=== PATIENT | female | born 1950 | race Caucasian/White ===

== ENCOUNTER 2016-11-11 06:00 | Inpatient (IN) ==
[2016-11-07 15:30] LABS: Basophils # (Auto) 0 K/mcL (0.0-0.3); Basophils % (Auto) 0.5 % (0.0-2.0); Eosinophils # (Auto) 0.1 K/mcL (0.0-0.7); Eosinophils % (Auto) 0.9 % (0.0-7.0); Granulocytes % (Auto) 73.9 % (38.0-78.0); Lymphocytes # (Auto) 1.3 K/mcL (1.5-4.8); Lymphocytes % (Auto) 16.4 % (15.5-49.0); Mean Cell Volume 90.8 fL (80.0-100.0); Mean Corpuscular HGB Conc 32.9 g/dL (31.0-36.0); Mean Corpuscular Hemoglobin 29.9 pg (26.0-34.0); Monocytes # (Auto) 0.6 K/mcL (0.1-0.9); Monocytes % (Auto) 8.3 % (1.0-9.0); Platelet Count 285 K/mcL (140-440); RBC 4.76 M/mcL (4.00-5.20); Red Cell Distribution Width 14.1 % (11.5-14.5)
[2016-11-07 15:40] LABS: Blood Urea Nitrogen 15 mg/dl (8-23)
[~2016-11-11 06:00] MED LIST: ACETAMINOPHEN 500 MG TABLET PO SCH; CELECOXIB 200 MG CAPSULE PO SCH; PREGABALIN 150 MG CAPSULE PO SCH; ceFAZolin 1 GM VIAL IV SCH; oxyCODONE 10 MG TAB.ER.12H PO SCH
[2016-11-11] MEDS ORDERED: NEOSTIGMINE 1 MG/ML VIAL IV ONE (09:30)
[2016-11-11] MEDS ORDERED: TRANEXAMIC ACID 1,000 MG/10 ML VIAL IV ONE (09:30)
[2016-11-11] MEDS ORDERED: GLYCOPYRROLATE 0.2 MG/ML VIAL IV ONE (09:30)
[2016-11-11] MEDS ORDERED: ROCURONIUM 10 MG/ML ML IV ONE (09:30)
[2016-11-11] MEDS ORDERED: MIDAZOLAM 5 MG/5 ML VIAL IV ONE (09:30)
[2016-11-11] MEDS ORDERED: ePHEDrine 50 MG/ML AMPUL IV ONE (09:30)
[2016-11-11] MEDS ORDERED: LIDOCAINE HCL/PF 100 MG/5 ML SYRINGE IV ONE (09:30)
[2016-11-11] MEDS ORDERED: PROPOFOL 200 MG/20 ML VIAL IV ONE (09:30)
[2016-11-11] MEDS ORDERED: DEXAMETHASONE 10 MG/ML VIAL IV ONE (09:30)
[2016-11-11] MEDS ORDERED: ONDANSETRON 4 MG/2 ML VIAL IV ONE (09:30)
[2016-11-11] MEDS ORDERED: HYDROmorphone 2 MG/ML SYRINGE IV PRN ×2 (10:22→12:23)
[2016-11-11] MEDS ORDERED: NALOXONE HCL 0.4 MG/ML VIAL IV PRN (10:22)
[2016-11-11] MEDS ORDERED: PROMETHAZINE 25 MG/ML VIAL IM ONE (10:22)
[2016-11-11] MEDS ORDERED: FLUMAZENIL 0.1 MG/ML ML IV PRN (10:22)
[2016-11-11] MEDS ORDERED: BENZOCAINE/MENTHOL 1 LOZENGE PO PRN ×2 (10:22→10:56)
[2016-11-11] MEDS ORDERED: fentaNYL 100 MCG/2 ML VIAL IV PRN (10:22)
[2016-11-11] MEDS ORDERED: diphenhydrAMINE 50 MG/ML VIAL IV PRN (10:22)
[2016-11-11] MEDS ORDERED: IPRATROPIUM/ALBUTEROL 3 ML AMPUL.NEB NEB PRN (10:22)
[2016-11-11] MEDS ORDERED: METOCLOPRAMIDE 10 MG/2 ML VIAL IV PRN (10:22)
[2016-11-11] MEDS ORDERED: MEPERIDINE 50 MG/ML SYRINGE IM ONE (10:22)
[2016-11-11] MEDS ORDERED: ePHEDrine 50 MG/ML AMPUL IV PRN (10:22)
[2016-11-11] MEDS ORDERED: MEPERIDINE 25 MG/ML SYRINGE IV PRN (10:22)
[2016-11-11] MEDS ORDERED: LACTATED RINGERS 250 ML IV PRN (10:22)
[2016-11-11] MEDS ORDERED: PROMETHAZINE 25 MG/ML VIAL IV PRN (10:22)
[2016-11-11] MEDS ORDERED: METHOCARBAMOL 1,000 MG/10 ML VIAL IV PRN (10:22)
[2016-11-11] MEDS ORDERED: ONDANSETRON 4 MG/2 ML VIAL IV PRN ×2 (10:22→10:56)
[2016-11-11] MEDS ORDERED: LACTATED RINGERS 1,000 ML IV SCH (10:30)
[2016-11-11] MEDS ORDERED: GENTAMICIN SULFATE 800 MG/20 ML VIAL IR ONE (10:35)
[2016-11-11] MEDS ORDERED: FLEETS ADULT ENEMA PR PRN (10:56)
[2016-11-11] MEDS ORDERED: TRANEXAMIC ACID 1,000 MG/10 ML VIAL IV SCH (10:56)
[2016-11-11] MEDS ORDERED: ACETAMINOPHEN 325 MG TABLET PO PRN (10:56)
[2016-11-11] MEDS ORDERED: POLYETHYLENE GLYCOL 3350 17 GM PACKET PO PRN (10:56)
[2016-11-11] MEDS ORDERED: BISACODYL 10 MG SUPP.RECT PR PRN (10:56)
[2016-11-11] MEDS ORDERED: MAGNESIUM HYDROXIDE 30 ML ORAL.SUSP PO PRN (10:56)
--- NOTE | 2016-11-11 12:06 | Operative Note ---
DATE OF OPERATION: 11/11/2016 PREOPERATIVE DIAGNOSIS: Right hip degenerative arthritis. POSTOPERATIVE DIAGNOSIS: Right hip degenerative arthritis. PROCEDURE: Right total hip arthroplasty with a cemented stem, cementless cup. SURGEON: Bernabe Juárez MD SLUDGE CONTROL ATTENDANT: Willie Teresa PA-C ANESTHESIA: General LMA anesthesia. COMPLICATIONS: None. IMPLANTS: Size 5 cemented stem with an 8 mm distal centralizer canal restrictor, +5 ceramic head on a dual mobility ball, and a 50 mm cup with one 30 mm screw and a dual mobility liner. DESCRIPTION OF PROCEDURE: The patient was brought to the operating room and put to sleep with general LMA anesthesia. Once asleep, the patient had the right hip sterilely prepped and draped in the usual sterile fashion. The patient was turned into a left lateral position and the right hip was confirmed as the operative site. Preop antibiotics and tranexamic acid were given. Ioban was placed over the skin and a superior posterior approach performed, a 4 inch incision made just above the hip. This was dissected through the muscle layer and identified the posterior capsule. We released the superior portion of the capsule. The hip was then dislocated. We made our neck cut at 30 mm in length, then subluxed the hip anteriorly, and reamed up to size 49 and implanted a 50 mm cup with a 30 mm screw in 20 degrees of version and 40 degrees of inclination. Once complete, we irrigated, placed the dual mobility liner and broached up the femur to a size 5 stem. We trialed a size 5 stem. This seemed to be appropriate for leg length and offset. We cemented into place a size 5 stem at 15 degrees of anteversion. Once the cement was dried, we then trialed the +5 neck length. This seemed to be the most appropriate size. An x-ray was taken to confirm leg length and offset. Once the intraoperative x-ray was complete, we irrigated and placed the final implants, tapped into place and reduced the hip. The patient was stable up to 90 degrees. We irrigated thoroughly and then repaired the posterior capsule with #2 Ethibond, closed the fascial layer with 0 Vicryl and closed the skin with 2-0 Vicryl and an adhesive closure. The patient tolerated this well. There was no complication. BOOM:rudolph Job ID: [id number] Doc ID: [id number] Bernabe Juárez MD
--- NOTE | 2016-11-11 12:48 | XRay Report ---
CLINICAL INFORMATION: Postop hip prostheses COMPARISON: None. FINDINGS: ] The right hip prostheses is anatomically aligned. No osseous abnormality. Soft tissue swelling and gas seen over the surgical site as expected. IMPRESSION: Negative Interpreted and Authenticated by: Memo Myers 11/11/16
[2016-11-11] MEDS: 0.45 % SODIUM CHLORIDE 1,000 ML IV SCH (13:32)
[2016-11-11] MEDS: 0.9 % SODIUM CHLORIDE 10 ML SYRINGE IV SCH ×2 (13:35→22:35)
--- NOTE | 2016-11-11 15:57 | Brief Operative Note ---
Date of procedure: 11/11/16 Pre-op diagnosis: left hip djd Post-op diagnosis: same Procedure: left marcel cemented Grafts/Implants: Yes Anesthesia: GETA Complications: none Complications Description: 11/11/16 15:57 none Surgeon: Bernabe Juárez Floor Space Allocator: Willie Teresa Estimated blood loss (cc): 150 Specimens Removed/Pathology: none sent Condition: stable Disposition: PACU
[2016-11-11] MEDS: ceFAZolin 1 GM VIAL IV SCH (18:06)
[2016-11-11] MEDS: DOCUSATE SODIUM 100 MG CAPSULE PO SCH (20:30)
[2016-11-11] MEDS: ASPIRIN 325 MG ENTERIC COATED TABLET PO SCH (20:30)
[2016-11-11] MEDS: KETOROLAC 15 MG/ML VIAL IV PRN (20:31)
[2016-11-11] MEDS ORDERED: SENNOSIDES 1 TABLET PO SCH (21:00)
[2016-11-11] MEDS ORDERED: TEMAZEPAM 15 MG CAPSULE PO PRN (21:00)
[2016-11-12] MEDS: 0.45 % SODIUM CHLORIDE 1,000 ML IV SCH (00:54)
[2016-11-12] MEDS: ceFAZolin 1 GM VIAL IV SCH (00:54)
[2016-11-12] MEDS: KETOROLAC 15 MG/ML VIAL IV PRN (04:16)
[2016-11-12] MEDS: 0.9 % SODIUM CHLORIDE 10 ML SYRINGE IV SCH (04:21)
[2016-11-12] MEDS ORDERED: LEVOTHYROXINE 88 MCG TABLET PO SCH (07:30)
--- NOTE | 2016-11-12 07:58 | Orthopedic Progress Note ---
Subjective Patient information: Note initiated : 11/12/16 at 7:57 am Service Date, if different from initiated Date: [] Patient: Ermelinda Moore 65 y/o F admitted on 11/11/16 for Right Total Hip Arthroplasty. Chief Complaint: [Pt is stable this morning on post operative day 1 without any significant concerns or complaints. Patients vital signs have remained stable. Patients dressing is dry and exhibits a grossly intact neurovascular and neuromotor exam. Patients 10 point ROS is otherwise negative. ] Objective Vital signs: Vital Signs Temp Pulse Resp BP BP Pulse Ox 11/12/16 07:40 97.8 F 58 L 14 134/69 98 11/12/16 04:25 97.6 F 57 L 12 144/65 96 11/12/16 04:24 96 11/12/16 03:00 95 11/12/16 01:00 97 11/12/16 00:00 98.1 F 59 L 12 127/78 94 11/11/16 23:00 96 11/11/16 21:00 96 11/11/16 20:00 97.6 F 62 12 135/68 96 11/11/16 19:00 96 11/11/16 17:54 99 11/11/16 17:00 99 11/11/16 16:20 67 132/75 99 11/11/16 15:00 98 11/11/16 14:33 53 L 148/67 100 11/11/16 14:18 57 L 134/57 100 11/11/16 14:03 55 L 131/65 100 11/11/16 13:47 48 L 147/79 100 11/11/16 13:33 53 L 142/78 99 11/11/16 13:04 46 L 138/84 95 11/11/16 13:00 98 11/11/16 12:49 59 L 134/61 95 11/11/16 12:24 95.2 F L 58 L 8 L 133/76 99 11/11/16 12:06 53 L 12 131/56 97 11/11/16 11:57 66 15 120/66 99 11/11/16 11:50 65 13 129/65 100 11/11/16 11:45 63 12 143/67 100 11/11/16 11:35 70 15 118/61 99 11/11/16 11:25 58 L 20 105/56 100 11/11/16 11:20 59 L 11 L 107/55 97 11/11/16 11:12 97.2 F L 70 20 114/57 100 11/11/16 08:00 98.3 F 87 16 169/89 97 Intake and Output 11/11/16 11/12/16 11/12/16 21:59 05:59 13:59 Intake Total 500 / 500 1175 / 1175 Output Total 1000 / 1000 1900 / 1900 Balance -500 / -500 -725 / -725 Intake: IV 1000 / 1000 Sodium Chloride 0.45% 1, 1000 / 1000 000 ml @ 100 mls/hr IV . Q10H MICHELLE Rx#:[id number] Oral 500 / 500 175 / 175 Output: Void Amount 1000 / 1000 1900 / 1900 Other: Meal Dinner Percent of Meal Consumed 100% # Voids 1 Weight 156 lb Intake & Output: Intake & Output 11/11/16 11/12/16 11/12/16 21:59 05:59 13:59 Intake Total 500 / 500 1175 / 1175 Output Total 1000 / 1000 1900 / 1900 Balance -500 / -500 -725 / -725 Weight 156 lb Intake: IV 1000 / 1000 Sodium Chloride 0.45% 1, 1000 / 1000 000 ml @ 100 mls/hr IV . Q10H MICHELLE Rx#:[id number] Oral 500 / 500 175 / 175 Output: Void Amount 1000 / 1000 1900 / 1900 Other: Meal Dinner Percent of Meal Consumed 100% # Voids 1 Incision: Yes healing Incision clean and dry: Yes Dressing: Yes clean, Yes dry Weight bearing status: partial Neurological exam IM: Yes motor sensory intact, Yes neurovascular intact Extremities exam IM: Yes Foot pink and warm, Yes neurovascular intact - Labs CBC & BMP: 11/12/16 05:21 11/07/16 13:32 Labs: 11/12/16 11/07/16 05:21 13:32 Hgb 14.2 Hct 32.7 L 43.2 Assessment and Plan (1) Hx of total hip arthroplasty Patient has been educated regarding wound care and dressings, follow up recommendations, and medication use. We will f/u with the patient within 2-3 weeks for wound check. Status: Acute
--- NOTE | 2016-11-12 08:00 | Discharge Summary ---
Ortho Discharge - JORGE - Patient Instructions Diet: Regular Diet Activity: activity as tolerated, weight bearing as tolerated Total Hip Protocol: Follow activity instructions as provided by Physical Therapy. Dressing Care: May shower in 2 days Patient Education: Total Hip Replacement (DC) - Problem Maintenance (1) Hx of total hip arthroplasty Status: Acute - Follow Up Plan Follow Up Appointments: Willie Teresa PA-C [Physician [facility]] - 11/26/16 1:40 pm Disposition: Home, Self-Care Prognosis: Good Rehab Potential: Good I certify that the patient requires SNF services: No Overall status at discharge: patient is progressing back to baseline - Orders For Discharge Prescriptions: Aspirin [Ecotrin] 325 mg PO BID #60 tab.ec Docusate Sodium [Colace] 100 mg PO BID #60 capsule Hydrocodone/APAP 7.5/325Mg [[place] 7.5/325Mg] 1 - 2 tab PO Q4HP PRN #75 tablet PRN Reason: Pain
[2016-11-12] MEDS: HYDROCODONE/APAP 7.5/325MG TABLET PO PRN ×2 (08:40→12:46)
[2016-11-12] MEDS: ASPIRIN 325 MG ENTERIC COATED TABLET PO SCH (08:40)
[2016-11-12] MEDS: DOCUSATE SODIUM 100 MG CAPSULE PO SCH (08:40)
== END 2016-11-12 13:00 | disposition home or self-care (01) | DRG 470 ==
LOC: MEDSUR 06:00
PROVIDERS: ADMIT Orthopaedic Surgery; ATTEND Orthopaedic Surgery

== ENCOUNTER 2021-05-21 17:24 | Inpatient (IN) ==
--- NOTE | 2021-05-21 17:54 | Emergency Department Note ---
Lower Extremity Injury HPI <Paris Townsend PA-C - Last Filed: 05/21/21 22:43> General Chief Complaint: Extremity Injury, Lower Stated Complaint: hip fx Time Seen by Provider: 05/21/21 17:33 History of Present Illness HPI Narrative: This is a 70-year-old female patient who was seen at [facility] for a impacted left intertrochanteric hip fracture after she fell from a boat in her driveway earlier this afternoon. She comes in the ER for surgical intervention with Dr. Lehman this evening. Pain is controlled by morphine. Currently denying nausea. No comorbidities include hypothyroidism, hypertension and hyperlipidemia. No history of coronary artery disease. Related Data Home Medications Medication Instructions Recorded Confirmed levothyroxine 88 mcg PO QAMAC 11/07/16 06/06/20 ncquadv-aotjqpaaj-cprb 500 tab PO DAILY 06/06/20 06/06/20 flaxseed oil [[place]-3 Flaxseed Oil] 1,400 mg PO QDAY 06/06/20 06/06/20 nfvrcnzwzms-nse-tvlruznwn-vitC cap PO DAILY 06/06/20 [Glucosamine Complex-MSM] hydrochlorothiazide 12.5 mg PO QDAY 06/06/20 06/06/20 magnesium 400 mg PO QDAY 06/06/20 06/06/20 pfsdjqeg-hzt-pzbc-FA-lutein 1 tab PO QDAY 06/06/20 06/06/20 [Central-Jad Women's Mature] Previous Rx's Medication Instructions Recorded aspirin 325 mg PO BID #60 tab.ec 11/12/16 Allergies Allergy/AdvReac Type Severity Reaction Status Date / Time cephalexin Allergy Severe Swelling Verified 06/06/20 08:42 of Lip/Tongue/Throat Penicillins Allergy Mild Hives Verified 11/07/16 13:19 Sulfa (Sulfonamide AdvReac Mild Other Verified 11/07/16 13:26 Antibiotics) Review of Systems <Paris Townsend PA-C - Last Filed: 05/21/21 22:43> ROS ROS Narrative: Narrative: All systems ED: reviewed and negative except as stated. PFSH <Paris Townsend PA-C - Last Filed: 05/21/21 22:43> Narrative Patient History Narrative: Narrative: Medical/Surgical/Family History All Active Problems Hx of total hip arthroplasty (Acute) Surgical History Hx of total hip arthroplasty Social History Smoking Status: Former smoker Exam <Paris Townsend PA-C - Last Filed: 05/21/21 22:43> Narrative Narrative: General: AOx3, NAD, nontoxic appearing. Pleasant and conversant. HEENT: PERRLA, EOMI, normocephalic. Moist mucous membranes. Normal facies and normal dentition. Respiratory: Lungs clear to auscultation bilaterally. No respiratory distress. Unlabored breathing. Heart: Regular rate and rhythm, no murmurs/clicks/rubs. Abdomen: Non-tender, Non distended, normal bowel tones. No organomegaly. Extremities: Warm and well perfused. No edema. DP 2+ bilaterally. No venous stasis. Moving left lower extremity toes and ankle. She is neurovascularly intact. The left leg is shortened and externally rotated with clear deformity of the femur. Neuro: No focal deficits. Cranial nerves II-XII normal. Skin: Warm dry, no rashes or lesions, no cyanosis. Psych: Normal mood and affect Heme/Lymph: No abnormal bruising Course <Paris Townsend PA-C - Last Filed: 05/21/21 22:43> Vital Signs Vital signs: Vital Signs Temperature 36.7 C 05/21/21 17:25 Pulse Rate 79 05/21/21 17:25 Respiratory Rate 18 05/21/21 17:25 Blood Pressure 157/67 05/21/21 17:25 Pulse Oximetry (%) 98 05/21/21 17:25 Temperature 35.7 C L 05/21/21 23:57 Pulse Rate 76 05/21/21 23:57 Respiratory Rate 14 05/21/21 23:57 Blood Pressure 157/85 05/21/21 23:57 Pulse Oximetry (%) 98 05/21/21 23:57 [facility] <Paris Townsend PA-C - Last Filed: 05/21/21 22:43> [facility] Narrative Medical decision making narrative: Left femoral hip fracture Dr. Lehman has been consulted on the patient and is planning for a left IM nailing of the hip this evening. Patient is currently stable and has good control of her pain. She is pending admission. Discharge Plan Patient/Caregiver Discharge Instructions Pt seen by ASSISTANT PROFESSOR OF MUSIC/PA only: Yes Patient Disposition: Xfer As Inpt ([facility]) Discharge Date/Time: 05/21/21 19:40 Discharge Location: [facility]
--- NOTE | 2021-05-21 18:19 | Internal Med History&Physical ---
HPI History of Present Illness Patient information: Note initiated : 05/21/21 at 6:12 pm Service Date, if different from initiated Date: [] Patient: Ermelinda Moore 70 y/o F admitted on for Hip FX. Chief Complaint: [] History of present illness: Ms. Moore is a 70 year old female with a history of hypertension, hyperlipidemia, hypothyroidism, right hip fracture s/p total hip arthroplasty in 2017, stage IA endometrial cancer definitively treated in 2017 transferred from an outside hospital ED for a left hip fracture that occurred today during a mechanical fall. The patient fell about three feet while walking on a boat that was over dry land. The patient arrived to the [facility] ED in stable condition. EKG showed normal sinus rhythm, no concerning changes for ischemic heart disease. The patient is normally an active person, she denies any recent exertional chest pain or shortness of breath. She does an approximately 5 year smoking history many years ago. Review of systems Constitutional: no fever, fatigue, or weight loss Eyes: no vision changes or pain Cardiovascular: no chest pain, no palpitations Respiratory: no cough or dyspnea Gastrointestinal: no abdominal pain, no nausea, vomiting, or diarrhea Genitourinary: no dysuria or difficulty voiding Musculoskeletal: positive for left hip pain Integumentary: no skin lesion or wound Neurological: no focal weakness or numbness Psychiatric: no anxiety or depression Physical exam Head: Atraumatic, normal inspection. Eyes: normal appearance, no scleral icterus. Neck: full ROM Respiratory: no respiratory distress. Cardiovascular: normal rate and rhythm, S1, S2. GI/Abdominal: soft, nontender, no guarding. Extremities: left hip tenderness, left lower extremity externally rotated Neurological: CN II-XII intact, intact motor, intact sensation. Psychiatric: normal mood. Skin: warm, normal color PFSH PFSH All Active Problems Hx of total hip arthroplasty (Acute) Surgical History Hx of total hip arthroplasty MEDS/ALLERGIES Home Medications and Allergies Home Medications Medication Instructions Recorded Confirmed Type levothyroxine 88 mcg PO QAMAC 11/07/16 06/06/20 History aspirin 325 mg PO BID #60 tab.ec 11/12/16 06/06/20 Rx sfinwzv-shegnanye-xyev 500 tab PO DAILY 06/06/20 06/06/20 History flaxseed oil [[place]-3 Flaxseed Oil] 1,400 mg PO QDAY 06/06/20 06/06/20 History qxjvdimdsnt-nud-bykevvrua-vitC cap PO DAILY 06/06/20 History [Glucosamine Complex-MSM] hydrochlorothiazide 12.5 mg PO QDAY 06/06/20 06/06/20 History magnesium 400 mg PO QDAY 06/06/20 06/06/20 History ybohbzom-wxl-qqlv-FA-lutein 1 tab PO QDAY 06/06/20 06/06/20 History [Central-Jad Women's Mature] Allergies Allergy/AdvReac Type Severity Reaction Status Date / Time cephalexin Allergy Severe Swelling Verified 06/06/20 08:42 of Lip/Tongue/Throat Penicillins Allergy Mild Hives Verified 11/07/16 13:19 Sulfa (Sulfonamide AdvReac Mild Other Verified 11/07/16 13:26 Antibiotics) EXAM Constitutional Vitals: Temp Pulse Resp BP Pulse Ox 98.1 F 79 18 157/67 98 05/21/21 17:25 05/21/21 17:25 05/21/21 17:25 05/21/21 17:25 05/21/21 17:25 A/P Narrative A/P Narrative: Assessment: 70 year old female with a history of hypertension, hyperlipidemia, hypothyroidism, right hip fracture s/p total hip arthroplasty in 2017, stage IA endometrial cancer definitively treated in 2017 transferred from an outside hospital ED for a left hip fracture that occurred today during a mechanical fall. #Left hip fracture from mechanical fall #Essential hypertension #Hyperlipidemia #Hypothyroidism #Osteoporosis #Hx of stage IA endometrial cancer treated in 2017 #History of penicillin and cephalexin allergy Plan -Analgesics prn. -Ortho consult. -Avoid prophylactic penicillin or cephalosporin. -IV fluid. -Home medication reconciliation, resume essential meds. -PT consult. -NPO for surgery. -DVT ppx: SCD until after surgey. -Code status: Full -Disposition: TBD Time Spent With Patient Time: Total time spent is greater than 50% in coordination of care (as documented) at patient's floor/unit and/or counseling patient:
[2021-05-21] MEDS ORDERED: VANCOMYCIN 1,000 MG in 0.9 % SODIUM CHLORIDE 250 ML IV ONE (20:11)
[2021-05-21] MEDS ORDERED: PHENYLephrine 1 MG/10 ML SYRINGE (ANEST) ONE (20:35)
[2021-05-21] MEDS ORDERED: MAGNESIUM SULFATE 2 GM/50 ML BAG IV ONE (20:35)
[2021-05-21] MEDS ORDERED: KETOROLAC 30 MG/ML VIAL ONE (20:35)
[2021-05-21] MEDS ORDERED: LIDOCAINE HCL/PF 100 MG/5 ML SYRINGE IV ONE (20:35)
[2021-05-21] MEDS ORDERED: PROPOFOL 200 MG/20 ML VIAL IV ONE (20:35)
[2021-05-21] MEDS ORDERED: KETAMINE 50 MG/ML Syringe (ANEST) IV ONE (20:35)
[2021-05-21] MEDS ORDERED: ONDANSETRON 4 MG/2 ML VIAL ONE (20:35)
[2021-05-21] MEDS ORDERED: MIDAZOLAM 2 MG/2 ML VIAL ONE (20:35)
[2021-05-21] MEDS ORDERED: TRANEXAMIC ACID 1,000 MG/10 ML VIAL ONE (20:35)
[2021-05-21] MEDS ORDERED: DEXAMETHASONE 10 MG/ML VIAL ONE (20:35)
[2021-05-21] MEDS ORDERED: fentaNYL 250 MCG/5 ML VIAL IV ONE (20:35)
[2021-05-21] MEDS ORDERED: GLYCOPYRROLATE 0.2 MG/ML VIAL IV ONE (20:35)
--- NOTE | 2021-05-21 21:47 | Consultation ---
DATE OF CONSULTATION: 05/21/2021 REASON FOR CONSULTATION: Left hip fracture. REQUESTING PROVIDER: Ugo Torres. CONSULTING PROVIDER: Dennis Lehman MD. HISTORY OF PRESENT ILLNESS: This is a 70-year-old female, who was trying to transfer from a boat that was over dry land, and she fell transferring and landed on concrete on her left hip. She had severe pain, was unable to bear weight. She was taken to [facility] Emergency Department. X-rays were taken, which showed a comminuted left subtrochanteric hip fracture. She was then transferred down to [facility] due to lack of orthopedic care at that facility. Her pain is worse with movement, better with immobility. She denies any other associated injuries or loss of consciousness. PAST MEDICAL HISTORY: Hypertension, hypothyroidism, hyperlipidemia, history of stage I endometrial cancer, and history of a right hip fracture with a total hip arthroplasty placed in 2017. PAST SURGICAL HISTORY: Right total hip arthroplasty. MEDICATIONS: Levothyroxine, aspirin 325 mg twice a day, hydrochlorothiazide 12.5 mg a day, magnesium, calcium, flaxseed oil, and a multivitamin. ALLERGIES: SEVERE ALLERGY TO KEFLEX AND A MILD ALLERGY TO PENICILLIN AND SULFA. SOCIAL HISTORY: She is . She quit smoking many years ago. REVIEW OF SYSTEMS: Negative on 10-system review except per the HPI. PHYSICAL EXAMINATION: VITAL SIGNS: Her temperature 98.1, pulse 79, respirations 18, blood pressure 157/67, pulse ox 98% on room air. GENERAL: She appears her stated age, in no acute distress. She is oriented to person and place. Mood and affect are appropriate. CARDIOVASCULAR: Regular. CHEST: Lungs are clear. EXTREMITIES: Her bilateral upper extremities and right lower extremity are normal to inspection, range of motion, and stability and strength. Her left lower extremity is significantly shortened and externally rotated. Sensation to light touch is intact and pedal pulses palpable. LABORATORY DATA: X-rays reviewed shows a severely comminuted, reverse obliquity subtrochanteric left hip fracture. IMPRESSION: Closed, comminuted left subtrochanteric hip fracture in a 70-year-old female with osteoporosis. PLAN: I recommend proceeding with urgent open treatment with intramedullary pa fixation of the left subtrochanteric femur fracture. I did discuss risks of the surgery with her, which include, but not limited to, bleeding; infection; injury to nerves, blood vessels of surrounding structures, anesthetic risks; nonunion or malunion of the fracture; failure of hardware fixation; possibility of needing further surgery in the future. She understands these risks and wished to proceed. She has been cleared by the hospitalist for surgery and n.p.o. status is more than 8 hours. BJB:jey Job ID: [id number] Doc ID: [id number] Dennis Lehman MD
[2021-05-21] MEDS ORDERED: LACTATED RINGERS 250 ML IV PRN (21:52)
[2021-05-21] MEDS ORDERED: HYDROmorphone 0.5 MG/0.5 ML SYRINGE IV PRN (21:52)
[2021-05-21] MEDS ORDERED: fentaNYL 100 MCG/2 ML VIAL IV PRN (21:52)
[2021-05-21] MEDS ORDERED: ACETAMINOPHEN 1,000 MG/100 ML BAG IV ONE ×2 (21:52→23:23)
[2021-05-21] MEDS ORDERED: IPRATROPIUM/ALBUTEROL 3 ML AMPUL.NEB NEB PRN (21:52)
[2021-05-21] MEDS ORDERED: METOPROLOL TARTRATE 5 MG/5 ML VIAL IV PRN (21:57)
[2021-05-21] MEDS ORDERED: METHOCARBAMOL 1,000 MG/10 ML VIAL IV PRN (21:57)
[2021-05-21] MEDS ORDERED: FLUMAZENIL 0.1 MG/ML ML IV PRN (21:57)
[2021-05-21] MEDS ORDERED: NALOXONE HCL 0.4 MG/ML VIAL IV PRN (21:57)
[2021-05-21] MEDS ORDERED: ONDANSETRON 4 MG/2 ML VIAL IV PRN (21:57)
[2021-05-21] MEDS ORDERED: LABETALOL 5 MG/ML ML IV PRN (21:57)
[2021-05-21] MEDS ORDERED: LACTATED RINGERS 1,000 ML IV SCH (22:00)
[2021-05-21] MEDS ORDERED: morphine 4 MG/ML VIAL IV PRN (22:44)
--- NOTE | 2021-05-21 22:44 | Brief Operative Note ---
Brief Operative Note Date of procedure: 05/21/21 Pre-op diagnosis: Left closed reverse obliquity comminuted hip fracture Post-op diagnosis: same Procedure: Open treatment intramedullary pa fixation of left subtrochanteric femur fracture Grafts/Implants: Yes (Cylance Gamma 10.5 x 400 125 deg nail, 95 lag screw) Anesthesia: GLMA Findings: severe comminution Complications: none Surgeon: Dennis Lehman Clerk Of Scales: Rocael Chavez Estimated blood loss (cc): 350 Specimens Removed/Pathology: none sent Condition: stable Disposition: PACU
[2021-05-21] MEDS ORDERED: VANCOMYCIN 1,000 MG in 0.9 % SODIUM CHLORIDE 250 ML IV SCH (22:45)
[2021-05-22] MEDS ORDERED: ONDANSETRON 4 MG/2 ML VIAL IV PRN (00:06)
[2021-05-22] MEDS ORDERED: HYDROcodone/APAP 5/325MG TABLET PO PRN (00:06)
[2021-05-22] MEDS ORDERED: POLYETHYLENE GLYCOL 3350 17 GM PACKET PO PRN (00:06)
[2021-05-22] MEDS ORDERED: HYDROmorphone 0.5 MG/0.5 ML SYRINGE IV PRN (00:06)
[2021-05-22] MEDS ORDERED: ACETAMINOPHEN 325 MG TABLET PO PRN (00:06)
[2021-05-22] MEDS: 0.9 % SODIUM CHLORIDE 1,000 ML IV SCH ×4 (00:15→16:03)
[2021-05-22] MEDS ORDERED: morphine 2 MG/ML VIAL ONE ×2 (00:16→00:40)
[2021-05-22] MEDS: 0.9 % SODIUM CHLORIDE 10 ML SYRINGE IV SCH ×6 (00:46→21:55)
[2021-05-22] MEDS: SENNOSIDES 1 TABLET PO SCH ×3 (00:46→21:43)
[2021-05-22] MEDS ORDERED: morphine 4 MG/ML VIAL ONE (05:22)
--- NOTE | 2021-05-22 08:01 | XRay Report ---
HISTORY: Postop repair fractured proximal left femur FINDINGS: There is a comminuted intertrochanteric fracture the proximal femur. This is held in good alignment using a long femoral pa and a crossing pin extending into the femoral head. The lesser trochanter is rotated and retracted proximally. No other fracture is present. Patient has underlying mild osteoarthritis in the knee. IMPRESSION: Good alignment following open reduction internal fixation of the intertrochanteric fracture Interpreted and Authenticated by: Ignacio Guzmán 05/22/21
[2021-05-22 08:05] LABS: Basophils # (Auto) 0.02 K/mcL (0.00-0.30); Basophils % (Auto) 0.1 % (0.0-2.0); Eosinophils # (Auto) 0 K/mcL (0.00-0.70); Eosinophils % (Auto) 0 % (0.0-7.0); Hemoglobin 10.2 g/dL (11.2-15.7); Lymphocytes % (Auto) 4.2 % (15.5-49.0); Mean Cell Volume 93.1 fL (80.0-100.0); Mean Corpuscular HGB Conc 32.9 g/dL (31.0-36.0); Mean Platelet Volume 10.4 fL (7.4-10.4); Monocytes # (Auto) 0.73 K/mcL (0.10-0.90); Monocytes % (Auto) 5.2 % (1.0-12.0); Neutrophils % (Auto) 90.5 % (38.0-78.0); Platelet Count 231 K/mcL (140-440); RBC 3.33 M/mcL (3.59-5.38); Red Cell Distribution Width 13.3 % (11.5-14.5); WBC 14.2 K/mcL (4.5-11.0)
--- NOTE | 2021-05-22 08:53 | XRay Report ---
HISTORY: FINDINGS: IMPRESSION: Three minutes of fluoroscopy time was used Interpreted and Authenticated by: Ignacio Guzmán 05/22/21
--- NOTE | 2021-05-22 09:00 | EKG ---
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 Electronically Signed On 05-22-2021 9:00:22 PDT by Iglesia Gamble /store/M0/[id number]
[2021-05-22 09:01] LABS: Blood Urea Nitrogen 17 mg/dL (8-23); Calcium 7.8 mg/dL (8.6-10.4); Carbon Dioxide 22 mmol/L (22-30); Chloride 102 mmol/L (96-108); Glomerular Filtration Rate 88; Glucose 209 mg/dL (70-105)
[2021-05-22] MEDS: oxyCODONE/APAP 5/325MG TABLET PO PRN ×3 (09:13→21:43)
[2021-05-22] MEDS ORDERED: VANCOMYCIN 1,000 MG in 0.9 % SODIUM CHLORIDE 250 ML IV ONE (11:00)
--- NOTE | 2021-05-22 11:28 | Orthopedic Progress Note ---
SUBJECTIVE Subjective Patient information: Note initiated : 05/22/21 at 11:25 am Service Date, if different from initiated Date: [] Patient: Ermelinda Moore 70 y/o F admitted on 05/21/21 for Hip FX. Chief Complaint: [] Had significant pain this morning trying to ambulate. Constitutional Vitals: Vital Signs Temp Pulse Resp BP Pulse Ox 97.0 F 78 18 127/64 97 05/22/21 07:13 05/22/21 07:13 05/22/21 07:13 05/22/21 07:13 05/22/21 07:13 Period Temp Pulse Resp BP Sys/Gorman Pulse Ox Last 24 Hr 96.2 F-98.1 F 58-88 9-23 119-157/63-86 97-100 Intake and Output 05/21/21 05/22/21 05/22/21 21:59 05:59 13:59 Intake Total 1900 Output Total 100 450 Balance 1800 -450 Weight 155 lb 155 lb Intake & Output: Intake & Output 05/21/21 05/22/21 05/22/21 21:59 05:59 13:59 Intake Total 1900 Output Total 100 450 Balance 1800 -450 Weight 155 lb 155 lb Intake: IV 350 Vancomycin 1,000 mg In Sodium 250 Chloride 0.9% 250 ml @ 250 mls/ hr IV ONCE ONE Rx#:[id number] Oral 50 IV - Manual Only 1500 Output: Urine Catheter Amount 450 Estimated Blood Loss 100 Other: Urine Appearance Clear Clear Uretheral (Vazquez) Clear Urine Color Dark Yellow Bright Yellow Uretheral (Vazquez) Dark Yellow Urine Odor Normal OBJ DATA Labs CBC & Chem 7: 05/22/21 06:51 05/22/21 06:50 Labs: Abnormal Lab Results 05/22/21 05/22/21 06:51 06:50 WBC 14.2 H RBC 3.33 L Hgb 10.2 L Hct 31.0 L Neut % (Auto) 90.5 H Lymph % (Auto) 4.2 L Lymph # (Auto) 0.60 L Absolute Neutrophils 12.81 H Glucose 209 H Calcium 7.8 L Meds: Medications Acetaminophen (Acetaminophen 325 Mg Tablet) 650 mg PO Q6HP PRN; Protocol PRN Reason: Per Pain Protocol/Fever > 101 Hydromorphone HCl (Hydromorphone 0.5 Mg/0.5 Ml Syringe) 0.5 mg IV Q2HP PRN; Protocol PRN Reason: Per Pain Protocol Sodium Chloride (Sodium Chloride 0.9%) 1,000 mls @ 75 mls/hr IV .[id number] [facility] Last Admin: 05/22/21 01:14 Dose: Not Given Documented by: Vancomycin HCl 1,000 mg/ (Sodium Chloride) 250 mls @ 250 mls/hr IV ONCE ONE Stop: 05/22/21 11:59 Ondansetron HCl (Ondansetron 4 Mg/2 Ml Vial) 4 mg IV Q6HP PRN PRN Reason: Nausea And Vomiting Oxycodone/Acetaminophen (Oxycodone/Apap 5/325mg Tablet) 0 tab PO Q4HP PRN; Protocol PRN Reason: Per Pain Protocol Last Admin: 05/22/21 09:13 Dose: 1 tab Documented by: Polyethylene Glycol (Polyethylene Glycol 3350 17 Gm Packet) 17 gm PO DAILYP PRN PRN Reason: Constipation Senna (Sennosides 1 Tablet) 2 tab PO BID [facility] Last Admin: 05/22/21 09:05 Dose: 2 tab Documented by: Sodium Chloride (0.9 % Sodium Chloride 10 Ml Syringe) 10 ml IV QSHIFT [facility] Last Admin: 05/22/21 06:58 Dose: Not Given Documented by: Sodium Chloride (0.9 % Sodium Chloride 10 Ml Syringe) 10 ml IV Q8 [facility] Last Admin: 05/22/21 04:56 Dose: Not Given Documented by: A/P Time Spent With Patient Time: Total time spent is greater than 50% in coordination of care (as documented) at patient's floor/unit and/or counseling patient: Assess: POD#1 s/p IMR of Left subtroch femur fracture-orthopedically stable Plan: ambulate patient this afternoon, if seems independent then OK to discharge home today from orthopedic standpoint if patient feels comfortable with that.
--- NOTE | 2021-05-22 11:36 | Discharge Plan ---
DC Instructions-General Patient Instructions Dressing Care: May shower in 3 days and Silvasorb gel & gauze - change daily Discharge Plan Patient/Caregiver Discharge Instructions Activity: ambulate only with your walker and other Diet: Regular Diet Prescriptions: New oxycodone-acetaminophen 5-325 mg Tablet 1 - 2 tab PO Q4H PRN (Reason: pain) Qty: 60 RF: 0 enoxaparin [Lovenox] 40 MG/0.4 ML syringe 40 mg SQ DAILY Qty: 42 RF: 0 No Action levothyroxine 88 MCG tablet 88 mcg PO QAMAC RF: 0 aspirin 325 MG tablet,delayed release (DR/EC) 325 mg PO BID Qty: 60 RF: 0 flaxseed oil [Weldon-3 Flaxseed Oil] 1,000 mg Capsule 1,400 mg PO QDAY RF: 0 magnesium 250 mg Tablet 400 mg PO QDAY RF: 0 Glucosamine Complex-MSM Capsule PO DAILY RF: 0 [id number]-[id number]-mwgd 333-133-5 mg Tablet 500 tab PO DAILY RF: 0 hydrochlorothiazide 12.5 mg Tablet 12.5 mg PO QDAY RF: 0 Central-Jad Women's Mature 8 mg iron-400 mcg-300 mcg Tablet 1 tab PO QDAY RF: 0 Other Ambulatory Orders: Physical Therapy DC - General (Routine) Location: None Selected Ordered By: Dennis Lehman Follow Up Plan Follow up with: Beatriz Dickens MD [Primary Care Provider] - Dennis Lehman MD [Physician] - Patient Disposition: Home, Self-Care Discharge Orders: Discharge Order (Routine); Ordered 05/22/21 Ordered By: Dennis Lehman
--- NOTE | 2021-05-22 16:01 | Internal Med Progress Note ---
SUBJECTIVE Subjective Patient information: Note initiated : 05/22/21 at 3:58 pm Service Date, if different from initiated Date: [] Patient: Ermelinda Moore 70 y/o F admitted on 05/21/21 for Hip FX. Chief Complaint: [] Interval history: Ms. Moore is a 70 year old female with a history of hypertension, hyperlipidemia, hypothyroidism, right hip fracture s/p total hip arthroplasty in 2017, stage IA endometrial cancer definitively treated in 2017 transferred from an outside hospital ED for a left hip fracture that occurred today during a mechanical fall. The patient fell about three feet while walking on a boat that was over dry land. The patient arrived to the [facility] ED in stable condition. EKG showed normal sinus rhythm, no concerning changes for ischemic heart disease. The patient is normally an active person, she denies any recent exertional chest pain or shortness of breath. She does an approximately 5 year smoking history many years ago. 05/22: Hypotensive earlier today, resolved. Started on lovenox for DVT prophylaxis. Orthopedic surgery ok with discharged. Likely discharge to home tomorrow with outpatient PT. Physical exam Head: Atraumatic, normal inspection. Eyes: normal appearance, no scleral icterus. Neck: full ROM Respiratory: no respiratory distress. Cardiovascular: normal rate and rhythm, S1, S2. GI/Abdominal: soft, nontender, no guarding. Extremities: left hip tenderness, left hip covered in clean bandage. Neurological: CN II-XII intact, intact motor, intact sensation. Psychiatric: normal mood. Skin: warm, normal color Constitutional Vitals: Vital Signs Temp Pulse Resp BP Pulse Ox 97.6 F 73 95 H 120/56 95 05/22/21 12:00 05/22/21 12:00 05/22/21 12:00 05/22/21 12:00 05/22/21 12:00 Period Temp Pulse Resp BP Sys/Gorman Pulse Ox Last 24 Hr 96.2 F-98.1 F 58-88 9-95 119-157/56-86 95-100 Intake and Output 05/22/21 05/22/21 05/22/21 05:59 13:59 21:59 Intake Total 1900 563 Output Total 100 450 Balance 1800 113 Weight 70.307 kg Intake & Output: Intake & Output 05/22/21 05/22/21 05/22/21 05:59 13:59 21:59 Intake Total 1900 563 Output Total 100 450 Balance 1800 113 Weight 70.307 kg Intake: IV 350 563 Sodium Chloride 0.9% 1,000 ml @ 563 125 mls/hr IV .Q8H [facility] Rx#: [id number] Vancomycin 1,000 mg In Sodium 250 Chloride 0.9% 250 ml @ 250 mls/ hr IV ONCE ONE Rx#:[id number] Oral 50 IV - Manual Only 1500 Output: Urine Catheter Amount 450 Estimated Blood Loss 100 Other: Urine Appearance Clear Clear Uretheral (Vazquez) Clear Urine Color Dark Yellow Bright Yellow Uretheral (Vazquez) Dark Yellow Urine Odor Normal OBJ DATA Labs CBC & Chem 7: 05/22/21 06:51 05/22/21 06:50 Labs: Abnormal Lab Results 05/22/21 05/22/21 06:51 06:50 WBC 14.2 H RBC 3.33 L Hgb 10.2 L Hct 31.0 L Neut % (Auto) 90.5 H Lymph % (Auto) 4.2 L Lymph # (Auto) 0.60 L Absolute Neutrophils 12.81 H Glucose 209 H Calcium 7.8 L Meds: Medications Acetaminophen (Acetaminophen 325 Mg Tablet) 650 mg PO Q6HP PRN; Protocol PRN Reason: Per Pain Protocol/Fever > 101 Hydromorphone HCl (Hydromorphone 0.5 Mg/0.5 Ml Syringe) 0.5 mg IV Q2HP PRN; Protocol PRN Reason: Per Pain Protocol Sodium Chloride (Sodium Chloride 0.9%) 1,000 mls @ 75 mls/hr IV .[id number] [facility] Last Admin: 05/22/21 01:14 Dose: Not Given Documented by: Ondansetron HCl (Ondansetron 4 Mg/2 Ml Vial) 4 mg IV Q6HP PRN PRN Reason: Nausea And Vomiting Oxycodone/Acetaminophen (Oxycodone/Apap 5/325mg Tablet) 0 tab PO Q4HP PRN; P rotocol PRN Reason: Per Pain Protocol Last Admin: 05/22/21 09:13 Dose: 1 tab Documented by: Polyethylene Glycol (Polyethylene Glycol 3350 17 Gm Packet) 17 gm PO DAILYP PRN PRN Reason: Constipation Senna (Sennosides 1 Tablet) 2 tab PO BID [facility] Last Admin: 05/22/21 09:05 Dose: 2 tab Documented by: Sodium Chloride (0.9 % Sodium Chloride 10 Ml Syringe) 10 ml IV QSHIFT [facility] Last Admin: 05/22/21 06:58 Dose: Not Given Documented by: Sodium Chloride (0.9 % Sodium Chloride 10 Ml Syringe) 10 ml IV Q8 [facility] Last Admin: 05/22/21 12:45 Dose: 10 ml Documented by: A/P Narrative A/P Narrative: Assessment: 70 year old female with a history of hypertension, hyperlipidemia, hypothyroidism, right hip fracture s/p total hip arthroplasty in 2017, stage IA endometrial cancer definitively treated in 2017 transferred from an outside hospital ED for a left hip fracture that occurred today during a mechanical fall. #Left hip fracture from mechanical fall #Essential hypertension #Hyperlipidemia #Hypothyroidism #Osteoporosis #Hx of stage IA endometrial cancer treated in 2017 #History of penicillin and cephalexin allergy Plan -Analgesics prn. -Ortho consult. -Home medication reconciliation, resume essential meds. -PT consult. -Regular diet -DVT ppx: Lovenox -Code status: Full -Disposition: home with outpatient PTevon tomorrow. Time Spent With Patient Time: Total time spent is greater than 50% in coordination of care (as documented) at patient's floor/unit and/or counseling patient: QUALITY Stroke Symptom Onset Unknown: No VTE Deep Vein Thrombosis/Pulmonary Embolism Present on Admission: No
[2021-05-23] MEDS: 0.9 % SODIUM CHLORIDE 1,000 ML IV SCH (02:48)
[2021-05-23] MEDS: 0.9 % SODIUM CHLORIDE 10 ML SYRINGE IV SCH ×3 (06:10→12:38)
[2021-05-23] MEDS ORDERED: LEVOTHYROXINE 88 MCG TABLET PO SCH (07:30)
--- NOTE | 2021-05-23 07:50 | Orthopedic Progress Note ---
SUBJECTIVE Subjective Patient information: Note initiated : 05/23/21 at 7:48 am Service Date, if different from initiated Date: [] Patient: Ermelinda Moore 70 y/o F admitted on 05/21/21 for Hip FX. Chief Complaint: Moderate pain. Constitutional Vitals: Vital Signs Temp Pulse Resp BP Pulse Ox 97.0 F 73 16 130/62 98 05/23/21 07:34 05/23/21 07:34 05/23/21 07:34 05/23/21 07:34 05/23/21 07:34 Period Temp Pulse Resp BP Sys/Gorman Pulse Ox Last 24 Hr 97.0 F-98.4 F 65-85 12-20 120-135/56-64 95-98 Intake and Output 05/22/21 05/23/21 05/23/21 21:59 05:59 13:59 Intake Total 2009 600 Output Total 700 900 300 Balance 1310 -300 -300 Weight 185 lb 1.6 oz bandages mild bloody drainage. nvi-distal Intake & Output: Intake & Output 05/22/21 05/23/21 05/23/21 21:59 05:59 13:59 Intake Total 2009 600 Output Total 700 900 300 Balance 1310 -300 -300 Weight 185 lb 1.6 oz Intake: IV 250 Vancomycin 1,000 mg In Sodium 250 Chloride 0.9% 250 ml @ 250 mls/ hr IV ONCE ONE Rx#:[id number] Oral 1760 600 Output: Void Amount 700 900 300 Other: Meal Dinner Percent of Meal Consumed 100% Feeding Ability Independent Urine Appearance Clear Clear Urine Color Bright Yellow Bright Yellow Urine Odor Normal Normal # Voids 2 OBJ DATA Labs CBC & Chem 7: 05/22/21 06:51 05/22/21 06:50 Labs: Abnormal Lab Results 05/22/21 05/22/21 06:51 06:50 WBC 14.2 H RBC 3.33 L Hgb 10.2 L Hct 31.0 L Neut % (Auto) 90.5 H Lymph % (Auto) 4.2 L Lymph # (Auto) 0.60 L Absolute Neutrophils 12.81 H Glucose 209 H Calcium 7.8 L Meds: Medications Acetaminophen (Acetaminophen 325 Mg Tablet) 650 mg PO Q6HP PRN; Protocol PRN Reason: Per Pain Protocol/Fever > 101 Sodium Chloride (Sodium Chloride 0.9%) 1,000 mls @ 75 mls/hr IV .[id number] [facility] Last Admin: 05/23/21 02:48 Dose: Not Given Documented by: Levothyroxine Sodium (Levothyroxine 88 Mcg Tablet) 88 mcg PO QAMAC [facility] Ondansetron HCl (Ondansetron 4 Mg/2 Ml Vial) 4 mg IV Q6HP PRN PRN Reason: Nausea And Vomiting Oxycodone/Acetaminophen (Oxycodone/Apap 5/325mg Tablet) 0 tab PO Q4HP PRN; Protocol PRN Reason: Per Pain Protocol Last Admin: 05/22/21 21:43 Dose: 1 tab Documented by: Polyethylene Glycol (Polyethylene Glycol 3350 17 Gm Packet) 17 gm PO DAILYP PRN PRN Reason: Constipation Senna (Sennosides 1 Tablet) 2 tab PO BID [facility] Last Admin: 05/22/21 21:43 Dose: 2 tab Documented by: Sodium Chloride (0.9 % Sodium Chloride 10 Ml Syringe) 10 ml IV QSHIFT [facility] Last Admin: 05/22/21 21:27 Dose: Not Given Documented by: Sodium Chloride (0.9 % Sodium Chloride 10 Ml Syringe) 10 ml IV Q8 [facility] Last Admin: 05/23/21 06:10 Dose: Not Given Documented by: A/P Assessment and plan (1) Femur fracture, left: Status: Acute Comment: mobilize with PT tentative discharge today Time Spent With Patient Time: Total time spent is greater than 50% in coordination of care (as documented) at patient's floor/unit and/or counseling patient:
[2021-05-23] MEDS: oxyCODONE/APAP 5/325MG TABLET PO PRN ×2 (08:06→12:37)
[2021-05-23] MEDS: SENNOSIDES 1 TABLET PO SCH (09:24)
[2021-05-23 10:54] LABS: Basophils # (Auto) 0.02 K/mcL (0.00-0.30); Basophils % (Auto) 0.2 % (0.0-2.0); Eosinophils # (Auto) 0.02 K/mcL (0.00-0.70); Eosinophils % (Auto) 0.2 % (0.0-7.0); Hematocrit 26.6 % (34.1-44.9); Hemoglobin 8.4 g/dL (11.2-15.7); Lymphocytes # (Auto) 1.29 K/mcL (1.50-4.80); Lymphocytes % (Auto) 11.8 % (15.5-49.0); Mean Cell Volume 95.7 fL (80.0-100.0); Mean Corpuscular HGB Conc 31.6 g/dL (31.0-36.0); Mean Platelet Volume 10.6 fL (7.4-10.4); Monocytes # (Auto) 0.96 K/mcL (0.10-0.90); Monocytes % (Auto) 8.8 % (1.0-12.0); Platelet Count 231 K/mcL (140-440); RBC 2.78 M/mcL (3.59-5.38); Red Cell Distribution Width 13.7 % (11.5-14.5)
[2021-05-23] MEDS ORDERED: ENOXAPARIN 40 MG/0.4 ML SYRINGE SQ SCH (11:16)
--- NOTE | 2021-05-23 12:18 | Discharge Summary ---
Discharge Provider Provider Patient information: Note initiated : 05/23/21 at 12:17 pm Service Date, if different from initiated Date: [] Patient: Ermelinda Moore 70 y/o F admitted on 05/21/21 for Hip FX. Chief Complaint: [] Date of admission: 05/21/21 23:56 Discharge date: 05/23/21 Primary care physician: Beatriz Dickens Consults: 05/21/21 Consult to Physician [CONS] Stat Comment: Consulting Provider: Ugo Torres Reason For Exam: Physician to Consult 05/22/21 00:06 Consult to Physician [CONS] Stat Comment: Consulting Provider: Dennis Lehman Reason For Exam: Physician to Consult Discharge Meds Discharge Medications Home Medications levothyroxine 88 mcg PO QAMAC 11/07/16 [History Confirmed 05/22/21 Last Taken 05/21/21 88 mcg] Central-Jad Women's Mature 1 tab PO QDAY 06/06/20 [History Confirmed 05/22/21 Last Taken 05/21/21 1] mqiqdlq-mrwtguxna-neoj 500 tab PO DAILY 06/06/20 [History Confirmed 05/22/21 Last Taken 05/21/21 1] flaxseed oil [Weir-3 Flaxseed Oil] 1,400 mg PO QDAY 06/06/20 [History Confirmed 05/22/21 Last Taken 05/21/21 1400 mg] hydrochlorothiazide 12.5 mg PO QDAY 06/06/20 [History Confirmed 05/22/21 Last Taken 05/21/21 12.5 mg] aspirin 81 mg PO QDAY 05/21/21 [History Confirmed 05/22/21 Last Taken 05/21/21 81 mg] enoxaparin [Lovenox] 40 mg SQ DAILY #42 syringe 05/22/21 [Rx Last Taken Unknown] oxycodone-acetaminophen 1 - 2 tab PO Q4H PRN #60 tab 05/22/21 [Rx Last Taken Unknown] enoxaparin [Lovenox] 40 mg SUBCUT QDAY 26 Days #10.4 ml 05/23/21 [Rx Last Taken Unknown] COURSE Hospital Course Hospital course: Ms. Moore is a 70 year old female with a history of hypertension, hyperlipidemia, hypothyroidism, right hip fracture s/p total hip arthroplasty in 2017, stage IA endometrial cancer definitively treated in 2017 transferred from an outside hospital ED for a left hip fracture that occurred today during a mechanical fall. The patient fell about three feet while walking on a boat that was over dry land. The patient arrived to the [facility] ED in stable condition. EKG showed normal sinus rhythm, no concerning changes for ischemic heart disease. The patient is normally an active person, she denies any recent exertional chest pain or shortness of breath. She does an approximately 5 year smoking history many years ago. 05/22: Hypotensive earlier today, resolved. Started on lovenox for DVT prophylaxis. Orthopedic surgery ok with discharged. Likely discharge to home tomorrow with outpatient PT. 05/23: Discharged to home with outpatient PT, lovenox for DVT prophylaxis. Physical exam Head: Atraumatic, normal inspection. Eyes: normal appearance, no scleral icterus. Neck: full ROM Respiratory: no respiratory distress. Cardiovascular: normal rate and rhythm, S1, S2. GI/Abdominal: soft, nontender, no guarding. Extremities: left hip tenderness, left hip covered in clean bandage. Neurological: CN II-XII intact, intact motor, intact sensation. Psychiatric: normal mood. Skin: warm, normal color Discharge diagnosis: Hip fracture Time Spent with Patient Time attestation: Total time spent providing and/or coordinating discharge services: EXAM Constitutional Vitals: Temp Pulse Resp BP Pulse Ox 97.0 F 73 16 130/62 98 05/23/21 07:34 05/23/21 07:34 05/23/21 07:34 05/23/21 07:34 05/23/21 07:34 Discharge Data Data Completed and Pending Labs on day of discharge: Labs from last 24 hours 05/23/21 09:30 WBC 11.0 RBC 2.78 L Hgb 8.4 L Hct 26.6 L MCV 95.7 MCH 30.2 MCHC 31.6 RDW 13.7 Plt Count 231 MPV 10.6 H Neut % (Auto) 79.0 H Lymph % (Auto) 11.8 L Bulloch % (Auto) 8.8 Eos % (Auto) 0.2 Baso % (Auto) 0.2 Lymph # (Auto) 1.29 L Bulloch # (Auto) 0.96 H Eos # (Auto) 0.02 Baso # (Auto) 0.02 Absolute Neutrophils 8.67 H Discharge Plan Patient/Caregiver Discharge Instructions Activity: ambulate only with your walker and other Diet: Regular Diet Instructions: Oxycodone/Acetaminophen (By mouth), Enoxaparin (By injection), Total Hip Replacement (DC) Activity Restrictions/Additional Instructions: Ambulate only with walker. May resume home diet as directed. Do the exercises at home that physical therapy gave you. Weight bearing as tolerated on operative side. Activity as tolerated. Use your ice packs in 20 minute increments as tolerated throughout the day. This and elevation will help with pain and swelling. On your left hip ypu have a Silver dressing covering paige, leave in place for 7 days then remove. This dressing is waterproof and can get wet. You may start to shower on post op day #2 (Wednesday 05/23) with dressing on the hip. No baths, swimming pools, or hot tubs. You are scheduled to start physical therapy at [facility] on 05/28/21 @ 11:00 AM. Take your prescription, photo ID, insurance cards, and current medication list with you to your first physical therapy appointment. Wear comfortable clothing for your physical therapy. Consider pre-medicating with pain medication 45 minutes prior to physical therapy appointment. Do not drive while on pain medication. Your prescription is with your discharge paperwork. Pain medication can cause constipation; take an over the counter stool softener and/or laxative while on pain medication. Some medications were electronically transmitted to [facility]. Take your prescription, insurance cards, and photo ID to sisal picker your medication. If you have any questions or concerns call your orthopedic surgeon before going to the emergency room. [facility] has an on- call physician 24 hours per day/7 days per week and can be reached at [phone]. Call for fevers above 100.5 or pain not controlled by medication. This discharge packet is provided to you to help keep you informed about your care. We want to ensure you get everything you need when you go home. You will also be receiving a call from us in a few days to follow up with you and see how you are doing since your discharge. This gives us a chance to listen to any concerns you maybe experiencing since you were discharged or any additional needs you may have, as well as providing us feedback on your care experience. We strive to always provide excellent care and thank you for your feedback and for choosing [facility]. Prescriptions: New oxycodone-acetaminophen 5-325 mg Tablet 1 - 2 tab PO Q4H PRN (Reason: pain) Qty: 60 RF: 0 enoxaparin [Lovenox] 40 MG/0.4 ML syringe 40 mg SQ DAILY Qty: 42 RF: 0 enoxaparin [Lovenox] 40 mg/0.4 mL syringe 40 mg subcut QDAY 26 Days Qty: 10.4 RF: 0 Continued levothyroxine 88 MCG tablet 88 mcg PO QAMAC RF: 0 flaxseed oil [Weir-3 Flaxseed Oil] 1,000 mg Capsule 1,400 mg PO QDAY RF: 0 zvhvlxk-yrwgvhkzz-ppqv 333-133-5 mg Tablet 500 tab PO DAILY RF: 0 hydrochlorothiazide 12.5 mg Tablet 12.5 mg PO QDAY RF: 0 Central-Jad Women's Mature 8 mg iron-400 mcg-300 mcg Tablet 1 tab PO QDAY RF: 0 aspirin 81 mg Tablet 81 mg PO QDAY RF: 0 Other Ambulatory Orders: Physical Therapy DC - General (Routine) Location: None Selected Ordered By: Dennis Coleman (ONCE) Location: None Selected Ordered By: Ugo Torres Follow Up Plan Follow up with: Beatriz Dickens MD [Primary Care Provider] - Dennis Lehman MD [Physician] - Patient Disposition: Home, Self-Care Discharge Orders: Discharge Order (Routine); Ordered 05/22/21 Ordered By: Dennis BEARD VTE Deep Vein Thrombosis/Pulmonary Embolism Present on Admission: No
--- NOTE | 2021-06-04 10:49 | Operative Note ---
DATE OF OPERATION: 05/21/2021 PREOPERATIVE DIAGNOSIS: Left comminuted subtrochanteric femur fracture. POSTOPERATIVE DIAGNOSIS: Left comminuted subtrochanteric femur fracture. PROCEDURE PERFORMED: Open treatment and internal fixation of a left comminuted subtrochanteric femur fracture with a long gamma nail. SURGEON: Dennis Lehman M.D. REFLESHER: Arsen Chavez PA-C. The PA's assistance was required for the safe and efficient completion of the entire case. This provider's expertise and technical skill were required throughout the case. The PA assisted with preoperative coordination, intraoperative retraction, wound closure, dressing and splint application, as well as postoperative documentation and care coordination. ANESTHESIA: General. DRAINS: None. SPECIMENS: None. COMPLICATIONS: None. ESTIMATED BLOOD LOSS: 300 mL. POSTOPERATIVE CONDITION: Stable. INDICATIONS FOR SURGERY: This is a 70-year-old female who sustained a fall from a ground level, landed on her left hip, had severe pain and inability to bear weight. X-rays taken at an outside facility showed a comminuted subtrochanteric fracture. FINDINGS AT SURGERY: Comminuted subtrochanteric fracture. Post-fixation showed satisfactory fracture reduction and hardware position. PROCEDURE IN DETAIL: The patient had been seen preoperatively. Informed consent had been obtained after discussion of risks and benefits of surgery. Risks including, but not limited to, bleeding; infection; injury to nerves, blood vessels, other surrounding structures; anesthetic risks; nonunion or malunion of the fracture; failure of hardware fixation; and possibility of needing further surgery. She understood and wished to proceed. Correct operative site was marked in preoperative holding, and patient was taken to the operating room. General anesthesia was induced. She was carefully positioned onto the fracture table and pressure points carefully padded. The right lower extremity was flexed out of the way and padded and then fluoroscopy was brought in. We applied some traction to get the fracture back out to length and then tried to reduce with rotation, although this being a subtrochanteric fracture, it would not reduce. We then prepped and draped the left hip and leg in a normal sterile fashion, and an Ioban shower curtain drape was placed. Due to the lack of reduction, I started with our incision overlying the fracture with a scalpel through skin and subcutaneous tissue. Hemostasis was obtained with Bovie cautery. We continued down onto the IT band and then this was incised in line with our skin incision. I then started dissecting posteriorly through the muscle down onto bone. We spent quite a bit of time trying to get fracture reduction with multiple clamps. Due to the comminution, this was very challenging. Once we had what we thought was initial adequate reduction, I then made my proximal incision with the scalpel through skin and subcutaneous tissue. Hemostasis was obtained with Bovie cautery. We continued dissecting down onto the IT band and this was incised in line with the skin incision. Blunt finger dissection was used to spread down onto the tip of the trochanter and then the guide pin was placed in the tip and started down the proximal femur. We then used the opening reamer with a tissue protector. A ball-tipped guidewire was then passed down the proximal femur. It was very difficult trying to get the guide pin across the fracture site, so I did end up having to guide it manually with my finger through the distal incision, guiding it into the distal shaft. This was then passed down to the superior pole of the patella. We then began sequentially reaming until we reamed 2 mm over the pa size. We used a ruler to measure our length and then a long gamma nail was opened. This was passed over the guide pa until the level was appropriate proximally to place the lag screw central. Once this was positioned, we then drilled the lateral cortex with a jig and then a guide pin was passed up into the center of the femoral head. This was redirected under fluoroscopy until it was central on both views and we then measured with our ruler and then a step drill was used to ream over the pin. Lag screw was opened and advanced until we were within a centimeter of the articular surface on both views and in good cortical bone. Due to the subtrochanteric nature of the reverse obliquity subtrochanteric fracture line, we did not want sliding compression, so I went ahead and locked the locking screw proximally. We then placed an end cap and then we removed the leg from traction and then the leg was adducted. We got perfect circles distally with fluoroscopy and then using freehand technique, drilled through the pa, one through the static hole. The second one was through the dynamic hole but in the static position. Once this was completed, final fluoro images were taken in AP of proximal fracture and distal and then lateral proximal fracture and distal. These were saved and printed. We then irrigated copiously with IrriSept, after a minute with saline. IT band proximal two incisions were closed with #1 Vicryl, 2-0 Monocryl was used for subcutaneous, and paige were used for skin. Xeroform and sterile dressings were applied. The patient was then awakened and transferred to the [facility] and extubated and taken to recovery in stable condition. [email or web address]:[email or web address] Job ID: [id number] Doc ID: [id number] Dennis Lehman MD
== END 2021-05-23 15:28 | disposition home or self-care (01) ==
LOC: ED 17:24 → SUR 19:40 → MEDSUR 23:56
PROVIDERS: ADMIT Orthopaedic Surgery; ATTEND Internal Medicine